=== PATIENT | female | born 1965 | race Caucasian/White ===

== ENCOUNTER 2022-03-15 17:05 | Emergency (ER) | payer OTHER ==
[~2022-03-15] VITALS: Ht 160 cm; Wt 75.0 kg
--- NOTE | 2022-03-15 17:22 | EKG ---
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
[2022-03-15] MEDS ORDERED: IV NORMAL SALINE 1,000ML 1,000 ML IV SCH (17:30)
[2022-03-15] MEDS ORDERED: MORPHINE SULFATE 2 MG/ML DISP.SYRIN. IV ONE (17:30)
[2022-03-15 17:36] LABS: BASO % 1 % (0-3); EOS # 0.2 x10^3/uL (0.0-0.7); EOS % 3 % (0-3); HEMATOCRIT 41.6 % (36.0-47.0); HEMOGLOBIN 13.7 g/dL (12.0-15.5); LYMPH # 2.3 x10^3/uL (1.0-4.8); LYMPH % 39 % (24-48); MEAN CORPUSCULAR HEMOGLOBIN 28 pg (25-35); MEAN CORPUSCULAR HGB CONC 33 g/dL (31-37); MEAN CORPUSCULAR VOLUME 85 fL (79-100); MONO # 0.5 x10^3/uL (0.0-1.1); MONO % 9 % (0-9); NEUT # 2.8 x10^3uL (1.8-7.7); NEUT % 48 % (31-73); PLATELET COUNT 212 x10^3/uL (140-400); RED BLOOD COUNT 4.91 x10^6/uL (3.50-5.40); RED CELL DISTRIBUTION WIDTH 15.8 % (11.5-14.5); WHITE BLOOD COUNT 5.9 x10^3/uL (4.0-11.0)
--- NOTE | 2022-03-15 17:36 | PHYS DOC ---
General Adult EDM: Chief Complaint: CHEST PAIN HPI: HPI: Patient is a 56-year-old female who presents to the emergency department today for midsternal chest pain that started around 1630. The pain does not radiate. No alleviating or aggravating factors. No treatment prior to arrival. She reports that at its worst the chest pain was 4 out of 10 but is better now that she is in the emergency department and now she rates it 1 out of 10. Patient denies nausea, vomiting, fever, cough, shortness of breath. She has no medical history and is not a current smoker. [] (SOHA MOISE APRN) Review of Systems: Review of Systems: Constitutional: See HPI Respiratory: See HPI Cardiovascular: See HPI GI: See HPI (SOHA MOISE APRN) Current Medications: Current Meds: Current Medications Medications (Trade) Dose Ordered Sig/Jorge L Start Time Stop Time Status Last Admin Dose Admin Morphine Sulfate (Morphine 2mg Syringe) 2 mg 1X ONCE 03/15/22 17:30 03/15/22 17:31 UNV Sodium Chloride 1,000 ml @ 1,000 mls/hr Q1H 03/15/22 17:30 03/15/22 18:29 UNV (SOHA MOISE APRN) Physical Exam: PE: Constitutional: Well developed, well nourished, no acute distress, non-toxic appearance. [] HENT: Normocephalic, atraumatic, bilateral external ears normal, oropharynx moist, no oral exudates, nose normal. [] Eyes: PERRL, EOMI, conjunctiva normal, no discharge. [] Neck: Normal range of motion, no tenderness, supple, no stridor. [] Cardiovascular:Heart rate regular rhythm, no murmur [] Lungs & Thorax: Bilateral breath sounds clear to auscultation [] Abdomen: Bowel sounds normal, soft, no tenderness, no masses, no pulsatile masses. [] Skin: Warm, dry, no erythema, no rash. [] Back: No tenderness, normal range of motion Extremities: No tenderness, no cyanosis, no clubbing, ROM intact, no edema. [] Neurologic: Alert and oriented X 3, normal motor function, normal sensory function, no focal deficits noted. [] Psychologic: Affect normal, judgement normal, mood normal. [] (SOHA MOISE APRN) Current Patient Data: Labs: Laboratory Tests Test 03/15/22 17:15 White Blood Count 5.9 x10^3/uL Red Blood Count 4.91 x10^6/uL Hemoglobin 13.7 g/dL Hematocrit 41.6 % Mean Corpuscular Volume 85 fL Mean Corpuscular Hemoglobin 28 pg Mean Corpuscular Hemoglobin Concent 33 g/dL Red Cell Distribution Width 15.8 % Platelet Count 212 x10^3/uL Neutrophils (%) (Auto) 48 % Lymphocytes (%) (Auto) 39 % Monocytes (%) (Auto) 9 % Eosinophils (%) (Auto) 3 % Basophils (%) (Auto) 1 % Neutrophils # (Auto) 2.8 x10^3uL Lymphocytes # (Auto) 2.3 x10^3/uL Monocytes # (Auto) 0.5 x10^3/uL Eosinophils # (Auto) 0.2 x10^3/uL Basophils # (Auto) 0.0 x10^3/uL Sodium Level 141 mmol/L Potassium Level 3.9 mmol/L Chloride Level 107 mmol/L Carbon Dioxide Level 27 mmol/L Anion Gap 7 Blood Urea Nitrogen 19 mg/dL Creatinine 0.8 mg/dL Estimated GFR (Cockcroft-Gault) 74.7 BUN/Creatinine Ratio 24 Glucose Level 110 mg/dL Calcium Level 8.8 mg/dL Total Bilirubin 0.4 mg/dL Aspartate Amino Transf (AST/SGOT) 37 U/L Alanine Aminotransferase (ALT/SGPT) 58 U/L Alkaline Phosphatase 91 U/L Troponin I High Sensitivity 5 ng/L Total Protein 6.9 g/dL Albumin 3.8 g/dL Albumin/Globulin Ratio 1.2 Current Medications Medications (Trade) Dose Ordered Sig/Jorge L Route PRN Reason Start Time Stop Time Status Last Admin Dose Admin Morphine Sulfate (Morphine 2mg Syringe) 2 mg 1X ONCE IV 03/15/22 17:30 03/15/22 17:31 UNV Sodium Chloride 1,000 ml @ 1,000 mls/hr Q1H IV 03/15/22 17:30 03/15/22 18:29 UNV (SOHA MOISE AUTO BODY TECHNICIAN) EKG: EKG: [] EKG performed by ER staff at 1709 shows sinus rhythm with a rate of 64, QTC of 419, no STEMI read by Dr. Arredondo (SOHA MOISE APRN) Radiology/Procedures: Radiology/Procedures: []PROCEDURE: PORTABLE CHEST 1V XR CHEST 1V History: Reason: cp / Spl. Instructions: / History: Comparison: None. Findings: No consolidation or pleural effusion. Normal heart size. No pneumothorax. Impression: 1. No acute cardiopulmonary process. Electronically signed by: Blake Almeida DO (03/15/2022 5:39 PM) [facility] DICTATED AND SIGNED BY: BLAKE ALMEIDA DO DATE: 03/15/221737 CC: EMERGENCY,DEPARTMENT; SOHA MOISE APRN; PCP,NO ~ (SOHA MOISE APRN) Heart Score: C/O Chest Pain: Yes HEART Score for Chest Pain: HEART Score for Chest Pain Response (Comments) Value History Slighlty/Non-Suspicious 0 ECG Normal 0 Age >45 - < 65 1 Risk Factors No Risk Factors 0 Troponin < Normal Limit 0 Total 1 Risk Factors: Risk Factors: DM, Current or recent (<one month) smoker, HTN, HLP, family history of CAD, obesity. Risk Scores: Score 0 - 3: 2.5% MACE over next 6 weeks - Discharge Home Score 4 - 6: 20.3% MACE over next 6 weeks - Admit for Clinical Observation Score 7 - 10: 72.7% MACE over next 6 weeks - Early Invasive Strategies (SOHA MOISE APRN) Course & Med Decision Making: Course & Med Decision Making Pertinent Labs and Imaging studies reviewed. (See chart for details) [] Patient presents to the emergency department today for chest pain that star javier at 1630 that has improved since being in the ER that she rates 1 out of 10. Work-up in the ER consisted of blood work including troponin, EKG and chest x- ray. Patient treated with IV fluids and pain medication. Patient's work-up in the ER was unremarkable, she did not have an elevated troponin. Chest x-ray did not show any acute findings. Patient's heart score is 1 and only risk factors are age. Patient's chest pain started at 1630 therefore, she will be monitored in the emergency department and have a 3-hour troponin drawn. I notified patient of her results and care plan and she is agreeable. 1836: discussed patients case with SIOBHAN Mccann and she will assume patient care at this time due to shift change. (SOHA MOISE AUTO BODY TECHNICIAN) Course & Med Decision Making Second troponin was unremarkable. EKG also shows no changes. Discussed all results with the patient. Tylenol and ibuprofen at home for pain. Advised patient to follow-up with primary care provider tomorrow regarding ER visit. Discussed return precautions in length. Patient verbalizes understanding of discharge instructions. Hemodynamically stable upon disposition. Patient is appreciative and okay with discharge plan. (BRENDA LENZ AUTO BODY TECHNICIAN) Dragon Disclaimer: Rahul Disclaimer: This electronic medical record was generated, in whole or in part, using a voice recognition dictation system. (SOHA MOISE AUTO BODY TECHNICIAN) Departure Departure: Impression: Primary Impression: Chest pain Qualified Codes: R07.9 - Chest pain, unspecified Disposition: HOME / SELF CARE / HOMELESS Condition: GOOD Referrals: PCP,NO (PCP) Patient Instructions: Chest Pain (Nonspecific) Additional Instructions: You were seen in the emergency department today for chest pain. As we dis cussed, at this time you are not experiencing acute coronary syndrome. Please take Tylenol and ibuprofen at home for your pain. Follow-up with your primary care provider tomorrow regarding your ER visit. If you develop chest pain, shortness of breath, intractable nausea or vomiting, high fevers refractory to treatment, dizziness, syncope or weakness need to return to the emergency department immediately for reevaluation. EMERGENCY DEPARTMENT GENERAL DISCHARGE INSTRUCTIONS Thank you for coming to [facility] (ED) today and trusting us with you care. We trust that you had a positivie experience in our Emergency Department. If you wish to speak to the department management, you may call the director at [phone]. YOUR FOLLOW UP INSTRUCTIONS ARE FOLLOWS: 1. Do you have a private Doctor? If you do not have a private doctor, please ask for a resource list of physicians or clinics that may be able to assist you with follow up care. 2. The Emergency Physician has interpreted your x-rays. The X-Ray specialist will also review them. If there is a change in the findings, you will be notified in 48 hours when at all possible. 3. A lab test or culture has been done, your results will be reviewed and you will be notified if you need a change in treatment. ADDITIONAL INSTRUCTIONS AND INFORMATION: 1. Your care today has been supervised by a physician who is specially trained in emergency care. Many problems require more than one evaluation for a complete diagnosis and treatment. We recommend that you schedule your follow up appointment as recommended to ensure complete treatment of you illness or injury. If you are unable to obtain follow up care and continue to have a problem, or if your condition worsens, we recommend that you return to the ED. 2. We are not able to safely determine your condition over the phone nor are we able to give sound medical advice over the phone. For these safety reasons, if you call for medical advice we will ask you to come to the ED for further evaluation. 3. If you have any questions regarding these discharge instructions please call the ED at [phone]. SAFETY INFORMATION: In the interest of safety, wellness, and injury prevention; we encourage you to wear your sealbelt, if you smoke; quite smoking, and we encourage family to use a protective helmet for bicycling and other sporting events that present an increased risk for head injury. IF YOUR SYMPTOMS WORSEN OR NEW SYMPTOMS DEVELOP, OR YOU HAVE CONCERNS ABOUT YOUR CONDITION; OR IF YOUR CONDITION WORSENS WHILE YOU ARE WAITING FOR YOUR FOLLOW UP APPOINTMENT; EITHER CONTACT YOUR PRIMARY CARE DOCTOR, THE PHYSICIAN WHOSE NAME AND NUMBER YOU WERE GIVEN, OR RETURN TO THE ED IMMEDIATELY. Attending Signature Attending Signature I have participated in the care of this patient and I have reviewed and agree with all pertinent clinical information above including history, exam, and recommendations. (CHRIS THOMAS MD) Dragon Disclaimer This chart was dictated in whole or in part using Voice Recognition software in a busy, high-work load, and often noisy Emergency Department environment. It may contain unintended and wholly unrecognized errors or omissions. (CHRIS THOMAS MD) SOHA MOISE AUTO BODY TECHNICIAN Mar 15, 2022 17:36 BRENDA LENZ AUTO BODY TECHNICIAN Mar 15, 2022 21:54 CHRIS THOMAS MD Mar 16, 2022 07:20
--- NOTE | 2022-03-15 17:41 | RAD ---
XR CHEST 1V History: Reason: cp / Spl. Instructions: / History: Comparison: None. Findings: No consolidation or pleural effusion. Normal heart size. No pneumothorax. Impression: 1. No acute cardiopulmonary process. Electronically signed by: Blake Almeida DO (03/15/2022 5:39 PM) [facility]
[2022-03-15 17:45] LABS: CALCIUM 8.8 mg/dL (8.5-10.1); CREATININE 0.8 mg/dL (0.6-1.0); GFR 74.7; POTASSIUM 3.9 mmol/L (3.5-5.1)
[2022-03-15 17:51] LABS: ALBUMIN 3.8 g/dL (3.4-5.0); ALBUMIN/GLOBULIN RATIO 1.2 (1.0-1.7); TOTAL BILIRUBIN 0.4 mg/dL (0.2-1.0); TOTAL PROTEIN 6.9 g/dL (6.4-8.2)
[2022-03-15] MEDS ORDERED: ONDANSETRON PF 4 MG/2 ML VIAL. IVP ONE (18:00)
[2022-03-15 21:36] VITALS: BP 138/80
== END 2022-03-15 22:05 | disposition home or self-care (01) ==
LOC: ER 17:05
DX: R07.2 Precordial pain (principal)
CPT/HCPCS: 36415; 71045; 80053; 84484; 85025; 93005; 96360; 99285; J7030